=== PATIENT | female | born 1965 | race Caucasian/White ===

== ENCOUNTER 2016-12-15 21:18 | Emergency (ER) | payer OTHER ==
--- NOTE | 2016-12-15 23:08 | DIAGNOSTIC IMAGING REPORT ---
PROCEDURE: XR CHEST 2 VIEW INDICATION: SHORTNESS OF BREATH TECHNIQUE: Two views. COMPARISON: None. FINDINGS: The cardiomediastinal contour and central vasculature are within normal limits. The lungs are clear without focal consolidation, pleural effusion, or pneumothorax. The visualized osseous structures and demonstrate moderate right-sided curvature of the mid thoracic spine. IMPRESSION: 1. No acute process.
--- NOTE | 2016-12-16 00:05 | ED CLINICAL REPORT ---
Clinical Report - Physicians/Mid Levels [facility] [address] [place] [address] 12/15/2016 21:17 Patient: ARISTEO BARNARD Time Seen: 21:55. Arrived- By private vehicle. HISTORY OF PRESENT ILLNESS Chief Complaint: DYSPNEA and CHEST PAIN. This started yesterday Cant get enouth air in. Since Chey took Flonase, albuterol 10 puffs over the day. [place] better. She wonders if it could be an allergy and is still present. It has been intermittent (Lasts an hour.). The dyspnea is described as moderate. (Better with meds as above.). No cough, sputum production, calf pain or foot swelling. She has experienced sweating episodes and had chest discomfort, anxiety and palpitations. She has had dyspnea on exertion (2). (She also noted burning in chest Did not fell well, racing heart, hot all over, SOB at 730 pm. Back pain IS 8/10 - she usually has back pain but usually it is a bit lower. Chest Burning is 5/10). Similar symptoms previously: Several times. ( Negative cardiac stress test 2 years ago.). Recent medical care: Not recently seen/assessed. REVIEW OF SYSTEMS No bloody stools or stools, fever, weight loss or double vision. No ear pain, sore throat, pedal edema, abdominal pain or black stools. No diarrhea, nausea, vomiting or difficulty with urination. The patient has had fatigue, difficulty breathing, palpitations and a headache. PAST HISTORY PCP: Dr. Ceja HERMINIO PROBLEMS: Bronchitis. COPD - Chronic Obstructive Pulmonary Disease. Herniated Disk. Paroxysmal Supraventricular Tachycardia. Asthma. --21:32 Radha Mayfield R.N. ADDITIONAL SURGERIES: Cholecystectomy. Rotator Cuff Surgery. Shoulder Surgery. SOCIAL HISTORY Heavy tobacco smoker- 1-2 packs per day. ADDITIONAL NOTES The nursing notes have been reviewed. PHYSICAL EXAM Vital Signs: 12/16/2016 00:08 BP: 110/75. HR: 98. RR: 17. O2 saturation: 99%. Pain level now: 0/10. 12/15/2016 23:15 BP: 120/59. HR: 87. RR: 16. O2 saturation: 97%. 12/15/2016 21:20 BP: 160/83. HR: 116. RR: 20. O2 saturation: 100%. Temp: 98.2 F. Pain level now: 810. Appearance: Alert. Anxious. Eyes: Eyes normal inspection. No scleral icterus. ENT: Pharynx normal. Neck: Normal inspection. CVS: Tachycardia. Heart sounds normal. Respiratory: No respiratory distress. No accessory muscle use, decreased air movement, prolonged expiration, wheezes or stridor. No rales or rhonchi. Abdomen: Soft. Obese. Skin: Skin warm. Normal skin color. Extremities: Extremities exhibit normal ROM. No lower extremity edema. No lower extremity edema. LABS, X-RAYS, AND EKG EKG: Rate: 95. Normal P waves. Normal BRYAN. T wave flattening. No ST elevation or depression. The EKG appears to be a good tracing. EKG #2: Normal. Chest X-ray: No acute disease. Normal lung markings present. Normal Chest X-Ray. The X-rays were interpreted by the radiologist and contemporaneously by me and discussed with the radiologist. Laboratory Tests: CBC w Diff: (CRISTA: 12/15/2016 22:05) ( MsgRcvd 12/15/2016 23:12) Final results Test Result Flag Units (Reference) WHITE BLOOD COUNT 10.2 K/uL (4.5-11.5) RED BLOOD COUNT 4.97 M/uL (4.00-5.20) HEMOGLOBIN 14.7 gm/dL (12.0-16.0) HEMATOCRIT 43.8 % (36.0-46.0) MEAN CELL VOLUME 88 fL (80-100) MEAN CORPUSCULAR HGB 30 pg (26-34) MEAN CORPUSCULAR HGB CONC 34 g/dL (31-37) RED CELL DISTRIBUTION WIDTH 15.3 H % (11.6-14.8) PLATELET COUNT 247 K/uL (150-400) LYMPH % 20.1 L % (25-40) MONO % 3.8 % (3-14) GRANULOCYTE % 76.1 (53-90) [id number]: (CRISTA: 12/15/2016 22:05) ( [facility] 12/15/2016 22:53) Final results Test Result Flag Units (Reference) D-DIMER QUANTITATIVE < 0.27 L ug/mLFEU (0.27-0.52) The primary value of this quantitative assay relates toits negative predictive value (i.e. exclusion) of pulmonaryembolism/deep vein thrombosis/DIC.Elevated levels of d-dimer may also occur with:, age, cancer, inflammation, liver disease,post-op, infection, hematoma, coronary disease, peripheralarteriopathy, bleeding disorders and thrombolytic treatment.Results should be correlated with other clinical andradiological data.Testing Methodology: Latex Immunoassay BNP: (CRISTA: 12/15/2016 22:05) ( [facility] [place]57[facility] Final results Test Result Flag Units (Reference) B-TYPE NATRIURETIC PEPTIDE 20.9 pg/ml (5-100) CHEM 13 PANEL: (CRISTA: 12/15/2016 22:05) ( [facility] [place] 12/15/2016 22:57) Final results Test Result Flag Units (Reference) GLUCOSE 110 mg/dL (70-110) BUN 18 mg/dL (7-18) CREATININE 1.2 mg/dL (0.6-1.3) Estimated GFR 49.95 mL/min Estimated GFR- >60 mL/min Note: Persistent reduction over 3 months in eGFR<60 mL/min/1.73 m2 defines CKD. Patients with eGFR values>=60 mL/min/1.73 m2 may also have CKD if evidence ofpersistent proteinuria. Additional information may be foundat www.kidney.org. SODIUM 142 mmol/L (136-145) POTASSIUM 4.1 mmol/L (3.5-5.1) CHLORIDE 104 mmol/L (98-107) CARBON DIOXIDE 31 mmol/L (21-32) CALCIUM 8.9 mg/dL (8.5-10.1) TOTAL PROTEIN 7.7 g/dL (6.4-8.2) ALBUMIN 3.4 g/dL (3.3-5.0) BILIRUBIN, TOTAL 0.2 mg/dL (0.0-1.0) ALKALINE PHOSPHATASE 100 U/L (46-116) AST (SGOT) 20 U/L (15-37) ALT (SGPT) 28 U/L (12-78) MAGNESIUM 1.9 mg/dL (1.8-2.4) CPK 83 U/L (24-260) TROPONIN I <0.05 L ng/mL (0.00-1.5) TROPONIN REFERENCE RANGE:<0.1 NEGATIVE0.1-1.5 INDETERMINANT>1.5 POSITIVE . PROGRESS AND PROCEDURES Course of Care: 22:20 12/15/16. The patient's 8/10 pain is her usual back pain. Peak Flow is 550 - COPD exacerbation or allergy is very unlikely. History atypical for ischemia, two non-ischemic EKGs and a single negative troponin make WI unlikely. I told the patient that a second 6 hour troponin would make WI known to extremely unlikely. She is not interested in waiting for a second troponin and understands the risk. Negative Ddimer - no PE CXR history and exam - No TA rupture, pneumothorax, esophageal rupture. Also not CHF. Cause is unknown but could be GERD will do a trial of anti reflux meds and make sure pt has follow up. Her initially rapid heart rate is improved without treatment. Disposition: Discharged. Condition: stable. CLINICAL IMPRESSION Clinical picture does not suggest COPD, pneumonia, pneumothorax or pulmonary edema or embolism. Clinical picture does not suggest respiratory failure, status asthmaticus, aortic dissection, congestive heart failure or myocardial infarction. INSTRUCTIONS (NO BRONGHOSPASM, not pneunonia, not collapsed lung, not blood clot in lung. WI very unlikely. Heart artery narrowing could be present and important. IMMEDIATE RECHECK FOR WORSE PAIN OR NEW BAD SYMPTOMS IT IS OK TO TAKE AN ASPIRIN IF YOU ARE HAVING CHEST PAIN. THERE MAY BE A SMALL RISK BUT A GREAT BENEFIT. NO HEAVY EXERCISE UNTIL THIS IS SORTED OUT.). Your Current Medications: CONTINUE TAKING THE FOLLOWING MEDICATIONS: Albuterol Sulfate HFA Inhalation : 2 puffs, prn. Atenolol Oral : 25 mg 2x a day. Diazepam Oral : 5 mg 2x a day, prn. Flexeril* : 10mg 2x a day. OxyCODONE HCl Oral : 5 mg 4x a day, prn. Synthroid Oral : 75 mcg daily. Triamterene-HCTZ Oral : Tablet 37.5-25 mg, 1 tablet daily. Prescription Medications: Omeprazole 20 mg capsules: Take 1 orally once daily. Dispense fifteen (15). No refills. Follow-up: Follow up with your doctor in four days. Understanding of the discharge instructions verbalized by patient. (Electronically signed by Niels Harrison MD 12/17/2016 13:05)
--- NOTE | 2016-12-16 00:05 | ED ORDER SUMMARY ---
..... Patient: ARISTEO BARNARD OrderSheet [facility] VisitID: [id number] [place] [address] 51y, F Registration Date/Time: 12/15/2016 ORDER SHEET Weight: 108.8 kg (stated) Allergies: Augmentin, Latex, Mobic, Neurontin, Doxycycline, ASA and NSAIDS GENERAL ORDERS: EKG - ER Stat (21:41 12/15/2016 CynthiaQuivey R.N. per protocol) (21:57 Ashanti) -- (MEDS NEED TO BE RECORDED.) (21:59 12/15/2016 Yaa HUFFMAN) (22:00 DDean R.N.) Chest 2V Urgent (22:00 12/15/2016 Yaa HUFFMAN) (Ack 22:08 Ashanti) (22:35 MCampbell) Team Assembly Line Machine Operator (Continuous) (22:00 12/15/2016 Yaa HUFFMAN) (22:01 DDean R.N.) Cardiac Panel Stat (22:00 12/15/2016 Yaa HUFFMAN) (Ack 22:07 Ashanti) (22:15 DDean R.N.) BNP Urgent (22:00 12/15/2016 Yaa HUFFMAN) (Ack 22:08 Ashanti) (22:15 DDean R.N.) Oxygen (2 L/min) (NC) (22:00 12/15/2016 Yaa HUFFMAN) (22:01 DDean R.N.) Pulse oximeter (22:00 12/15/2016 Yaa HUFFMAN) (22:01 DDean R.N.) EKG - ER Stat (22:00 12/15/2016 Yaa HUFFMAN) (Ack 22:07 Ashanti) (22:08 Ashanti) D-Dimer Urgent (22:01 12/15/2016 Yaa HUFFMAN) (Ack 22:08 Ashanti) (22:15 DDean R.N.) Peak Flow (pre & post) Stat (22:45 12/15/2016 Yaa HUFFMAN) (22:57 Shanell Shields) EKG - ER Repeat Stat (23:47 12/15/2016 Yaa HUFFMAN) (0:01 Ashanti) MEDICATION ORDERS: Aspirin PO 325 mg (NOW) (22:02 12/15/2016 Yaa HUFFMAN) (Ack 22:16 DDean R.N.) (Cancelled: Other22:28 DDean R.N.) NitroGLYCERIN Paste Topical 0.5 in. (to CW) (22:03 12/15/2016 Yaa HUFFMAN) (Ack 22:16 DDean R.N.) (22:28 DDean R.N.) IV FLUIDS: IV Saline Lock (22:00 12/15/2016 Yaa HUFFMAN) (Ack 22:01 DDean R.N.) (22:16 DDean R.N.) ORDER SHEET NOTES: [Electronically signed by Larry Hernandez R.N. (00:27 12/16/2016)] [Electronically signed by Niels Harrison MD (13:05 12/17/2016)] [Electronically locked/signed by Larry Hernandez R.N. (00:27 12/16/2016)]
--- NOTE | 2016-12-16 00:05 | ED NURSING NOTES ---
Clinical Report - Nurses [facility] [address] [place] [address] 12/15/2016 21:17 Patient: ARISTEO BARNARD TRIAGE Triage time 2120. Acuity: LEVEL 3. Chief Complaint: (Pt in c/o anxiety, SOB, and pain in back on and off for several days, today onset was at 1930 "I just feel weird" Pt also states she is "very sweaty"). JAYESH COMA SCORE: [place] Coma Scale: 15- eyes open spontaneously (4); best verbal response- oriented x 4 (5); best motor response- obeys commands (6). --21:33 Radha Mayfield R.N. 21:20 12/15/16. BP: 160/83. HR: 116. RR: 20. O2 saturation: 100%. Temp: 98.2 F. Pain level now: 03/12. Additional comments: back pain . --21:33 Radha Mayfield R.N. Weight: 108.8 kg stated. Height/Length: 65 inches Per Patient. BMI: 40. --21:31 Radha Mayfield R.N. Medications Albuterol Sulfate HFA Inhalation 2 puffs, as needed. Atenolol Oral 25 mg, 2x a day. Flexeril 10mg, 2x a day. OxyCODONE HCl Oral 5 mg, 4x a day as needed. Triamterene-HCTZ Oral (Tablet 37.5-25 mg) 1 tablet, daily. --22:20 Radha Mayfield R.N. Synthroid Oral 75 mcg, daily. --22:21 Radha Mayfield R.N. Diazepam Oral 5 mg, 2x a day as needed. --22:21 Radha Mayfield R.N. Allergies Augmentin.(rash) Latex.(itching) Mobic. (liver counts went up, face went numb) Neurontin. --22:17 Radha Mayfield R.N. Doxycycline. (facial swelling) --22:17 Radha Mayfield R.N. ASA and NSAIDS. (czauses restless leg syndrome) --22:18 Radha Mayfield R.N. History Arrived by private vehicle. Historian: patient. Primary physician (Marcial- smokey pt). The patient has had a cough productive of scant amounts of sputum. Reports muscle aches. PAST MEDICAL HX: The patient is post-menopausal. ( chronic back pain). SOCIAL HX: Heavy tobacco smoker (cigarette)- 1-2 packs per day. Occasional alcohol use. No drug use. --21:33 Radha Mayfield R.N. ( pt states she thinks she might be having an allergic reaction to mold in her car). --21:40 Radha Mayfield R.N. PROBLEMS: Bronchitis. COPD - Chronic Obstructive Pulmonary Disease. Herniated Disk. Paroxysmal Supraventricular Tachycardia. Asthma. --21:32 Radha Mayfield R.N. ADDITIONAL SURGERIES: Cholecystectomy. Rotator Cuff Surgery. Shoulder Surgery. --21:32 Radha Mayfield R.N. Interventions ID band on patient. To treatment room. --21:33 Radha Mayfield R.N. PHYSICAL ASSESSMENT 21:20. Ambulatory to room. Patient gowned. GENERAL / NEURO / PSYCH: Alert. Oriented X 4. Appears anxious. RESPIRATORY: Respirations not labored. The patient can speak. CVS: Capillary refill less than 2 seconds. GI / : Abdomen soft. SKIN: Skin is warm. ( skin slightly moist). --21:35 Radha Mayfield R.N. NURSING PROGRESS NOTES 21:20. Oxygen administered. Monitoring of patient in place. Patient gowned. Head of bed elevated. Reassurance given. Patient identifiers checked. Call light placed in reach. Side rails up. Bed placed in lowest position. Patient ready for evaluation- chart flagged. --21:34 Radha Mayfield R.N. 21:40 12/15/16. cafeteria monitor placed on patient; (NSR). --21:40 Radha Mayfield R.N. EKG time: (797). EKG was ordered, performed by myla perales and shown to the ED physician. done by SARTHAK Granados --22:01 Radha Mayfield R.N. 22:06 12/15/2016 Site #1 started via IV in the left antecubital space with an 20g angiocath, with aseptic technique and good blood return; one attempt. Blood drawn: rainbow set. Labeled in the presence of the patient and sent to the lab. Saline lock flushed with 10 mL saline. --22:16 Radha Mayfield R.N. 22:28 12/15/2016 NITROGLYCERIN PASTE Topical Paste 0.5 inch. Applied to the left upper back. Allergies verified and confirmed 5 rights. --22:28 Radha Mayfield R.N. 22:30. Care transferred and report given (Larry Pham, EDRN). --22:56 Radha Mayfield R.N. Cardiac rhythm: normal sinus rhythm. The patient is calm and resting quietly. RESPIRATORY: No respiratory distress. SKIN: Skin is warm and dry. Skin color within normal limits. --23:18 Larry Hernandez R.N. 23:15 12/15/16. BP: 120/59. HR: 87. RR: 16. O2 saturation: 97% on room air. --23:18 Larry Hernandez R.N. EKG time: (2358). EKG was ordered, performed by a angella and shown to the ED physician. ( 2nd EKG (repeat)). --00:04 Silvia Panchal 00:12. The patient is calm and resting quietly. RESPIRATORY: No respiratory distress. SKIN: Skin is warm and dry. Skin color within normal limits. --00:27 Larry Hernandez R.N. DISPOSITION / DISCHARGE 00:09 12/16/2016 Site #1 removed upon discharge. Catheter intact. Bandage applied. --00:27 Larry Hernandez R.N. Departure time: 4. Condition at departure: improved and stable. No learning barriers present. Discharge instructions provided and reviewed with the patient. Reviewed medication(s) side effects, precautions, dosing and course information. Prescription(s) given to the patient. Patient verbalized understanding. Written instructions provided in Grenadian. The patient was discharged home and unaccompanied at time of discharge. She left the Emergency Department ambulatory and via private vehicle. Patient driving. FALL RISK ASSESSMENT: Fall risk assessment completed. No fall risk identified. --00:27 Larry Hernandez R.N. 00:08 12/16/16. BP: 110/75. HR: 98. RR: 17. O2 saturation: 99%. Pain level now: 0/10. --00:27 Larry Hernandez R.N. Locked/Released at 12/16/2016 0:27 by Larry Hernandez R.N.
--- NOTE | 2016-12-16 00:05 | ED ORDER SUMMARY ---
..... Patient: ARISTEO BARNARD OrderSheet [facility] VisitID: [id number] [place] [address] 51y, F Registration Date/Time: 12/15/2016 ORDER SHEET Weight: 108.8 kg (stated) Allergies: Augmentin, Latex, Mobic, Neurontin, Doxycycline, ASA and NSAIDS GENERAL ORDERS: EKG - ER Stat (21:41 12/15/2016 CynthiaQuivey R.N. per protocol) (21:57 Ashanti) -- (MEDS NEED TO BE RECORDED.) (21:59 12/15/2016 Yaa HUFFMAN) (22:00 DDean R.N.) Chest 2V Urgent (22:00 12/15/2016 Yaa HUFFMAN) (Ack 22:08 Ashanti) (22:35 MCampbell) Elementary Secretary (Continuous) (22:00 12/15/2016 Yaa HUFFMAN) (22:01 DDean R.N.) Cardiac Panel Stat (22:00 12/15/2016 Yaa HUFFMAN) (Ack 22:07 Ashanti) (22:15 DDean R.N.) BNP Urgent (22:00 12/15/2016 Yaa HUFFMAN) (Ack 22:08 Ashanti) (22:15 DDean R.N.) Oxygen (2 L/min) (NC) (22:00 12/15/2016 Yaa HUFFMAN) (22:01 DDean R.N.) Pulse oximeter (22:00 12/15/2016 Yaa HUFFMAN) (22:01 DDean R.N.) EKG - ER Stat (22:00 12/15/2016 Yaa HUFFMAN) (Ack 22:07 Ashanti) (22:08 Ashanti) D-Dimer Urgent (22:01 12/15/2016 Yaa HUFFMAN) (Ack 22:08 Ashanti) (22:15 DDean R.N.) Peak Flow (pre & post) Stat (22:45 12/15/2016 Yaa HUFFMAN) (22:57 Shanell Shields) EKG - ER Repeat Stat (23:47 12/15/2016 Yaa HUFFMAN) (0:01 Ashanti) MEDICATION ORDERS: Aspirin PO 325 mg (NOW) (22:02 12/15/2016 Yaa HUFFMAN) (Ack 22:16 DDean R.N.) (Cancelled: Other22:28 DDean R.N.) NitroGLYCERIN Paste Topical 0.5 in. (to CW) (22:03 12/15/2016 Yaa HUFFMAN) (Ack 22:16 DDean R.N.) (22:28 DDean R.N.) IV FLUIDS: IV Saline Lock (22:00 12/15/2016 Yaa HUFFMAN) (Ack 22:01 DDean R.N.) (22:16 DDean R.N.) ORDER SHEET NOTES: [Electronically signed by Larry Hernandez R.N. (00:27 12/16/2016)] [Electronically signed by Niels Harrison MD (13:05 12/17/2016)] [Electronically locked/signed by Larry Hernandez R.N. (00:27 12/16/2016)]
--- NOTE | 2016-12-16 00:05 | ED NURSING NOTES ---
Clinical Report - Nurses [facility] [address] [place] [address] 12/15/2016 21:17 Patient: ARISTEO BARNARD TRIAGE Triage time 2120. Acuity: LEVEL 3. Chief Complaint: (Pt in c/o anxiety, SOB, and pain in back on and off for several days, today onset was at 1930 "I just feel weird" Pt also states she is "very sweaty"). JAYESH COMA SCORE: [place] Coma Scale: 15- eyes open spontaneously (4); best verbal response- oriented x 4 (5); best motor response- obeys commands (6). --21:33 Radha Mayfield R.N. 21:20 12/15/16. BP: 160/83. HR: 116. RR: 20. O2 saturation: 100%. Temp: 98.2 F. Pain level now: 03/12. Additional comments: back pain . --21:33 Radha Mayfield R.N. Weight: 108.8 kg stated. Height/Length: 65 inches Per Patient. BMI: 40. --21:31 Radha Mayfield R.N. Medications Albuterol Sulfate HFA Inhalation 2 puffs, as needed. Atenolol Oral 25 mg, 2x a day. Flexeril 10mg, 2x a day. OxyCODONE HCl Oral 5 mg, 4x a day as needed. Triamterene-HCTZ Oral (Tablet 37.5-25 mg) 1 tablet, daily. --22:20 Radha Mayfield R.N. Synthroid Oral 75 mcg, daily. --22:21 Radha Mayfield R.N. Diazepam Oral 5 mg, 2x a day as needed. --22:21 Radha Mayfield R.N. Allergies Augmentin.(rash) Latex.(itching) Mobic. (liver counts went up, face went numb) Neurontin. --22:17 Radha Mayfield R.N. Doxycycline. (facial swelling) --22:17 Radha Mayfield R.N. ASA and NSAIDS. (czauses restless leg syndrome) --22:18 Radha Mayfield R.N. History Arrived by private vehicle. Historian: patient. Primary physician (Marcial- smokey pt). The patient has had a cough productive of scant amounts of sputum. Reports muscle aches. PAST MEDICAL HX: The patient is post-menopausal. ( chronic back pain). SOCIAL HX: Heavy tobacco smoker (cigarette)- 1-2 packs per day. Occasional alcohol use. No drug use. --21:33 Radha Mayfield R.N. ( pt states she thinks she might be having an allergic reaction to mold in her car). --21:40 Radha Mayfield R.N. PROBLEMS: Bronchitis. COPD - Chronic Obstructive Pulmonary Disease. Herniated Disk. Paroxysmal Supraventricular Tachycardia. Asthma. --21:32 Radha Mayfield R.N. ADDITIONAL SURGERIES: Cholecystectomy. Rotator Cuff Surgery. Shoulder Surgery. --21:32 Radha Mayfield R.N. Interventions ID band on patient. To treatment room. --21:33 Radha Mayfield R.N. PHYSICAL ASSESSMENT 21:20. Ambulatory to room. Patient gowned. GENERAL / NEURO / PSYCH: Alert. Oriented X 4. Appears anxious. RESPIRATORY: Respirations not labored. The patient can speak. CVS: Capillary refill less than 2 seconds. GI / : Abdomen soft. SKIN: Skin is warm. ( skin slightly moist). --21:35 Radha Mayfield R.N. NURSING PROGRESS NOTES 21:20. Oxygen administered. Monitoring of patient in place. Patient gowned. Head of bed elevated. Reassurance given. Patient identifiers checked. Call light placed in reach. Side rails up. Bed placed in lowest position. Patient ready for evaluation- chart flagged. --21:34 Radha Mayfield R.N. 21:40 12/15/16. nuclear engineer placed on patient; (NSR). --21:40 Radha Mayfield R.N. EKG time: (356). EKG was ordered, performed by myla perales and shown to the ED physician. done by SARTHAK Granados --22:01 Radha Mayfield R.N. 22:06 12/15/2016 Site #1 started via IV in the left antecubital space with an 20g angiocath, with aseptic technique and good blood return; one attempt. Blood drawn: rainbow set. Labeled in the presence of the patient and sent to the lab. Saline lock flushed with 10 mL saline. --22:16 Radha Mayfield R.N. 22:28 12/15/2016 NITROGLYCERIN PASTE Topical Paste 0.5 inch. Applied to the left upper back. Allergies verified and confirmed 5 rights. --22:28 Radha Mayfield R.N. 22:30. Care transferred and report given (Larry Pham, EDRN). --22:56 Radha Mayfield R.N. Cardiac rhythm: normal sinus rhythm. The patient is calm and resting quietly. RESPIRATORY: No respiratory distress. SKIN: Skin is warm and dry. Skin color within normal limits. --23:18 Larry Hernandez R.N. 23:15 12/15/16. BP: 120/59. HR: 87. RR: 16. O2 saturation: 97% on room air. --23:18 Larry Hernandez R.N. EKG time: (2358). EKG was ordered, performed by a angella and shown to the ED physician. ( 2nd EKG (repeat)). --00:04 Silvia Panchal 00:12. The patient is calm and resting quietly. RESPIRATORY: No respiratory distress. SKIN: Skin is warm and dry. Skin color within normal limits. --00:27 Larry Hernandez R.N. DISPOSITION / DISCHARGE 00:09 12/16/2016 Site #1 removed upon discharge. Catheter intact. Bandage applied. --00:27 Larry Hernandez R.N. Departure time: 4. Condition at departure: improved and stable. No learning barriers present. Discharge instructions provided and reviewed with the patient. Reviewed medication(s) side effects, precautions, dosing and course information. Prescription(s) given to the patient. Patient verbalized understanding. Written instructions provided in Lebanese. The patient was discharged home and unaccompanied at time of discharge. She left the Emergency Department ambulatory and via private vehicle. Patient driving. FALL RISK ASSESSMENT: Fall risk assessment completed. No fall risk identified. --00:27 Larry Hernandez R.N. 00:08 12/16/16. BP: 110/75. HR: 98. RR: 17. O2 saturation: 99%. Pain level now: 0/10. --00:27 Larry Hernandez R.N. Locked/Released at 12/16/2016 0:27 by Larry Hernandez R.N.
--- NOTE | 2016-12-16 00:05 | ED CLINICAL REPORT ---
Clinical Report - Physicians/Mid Levels [facility] [address] [place] [address] 12/15/2016 21:17 Patient: ARISTEO BARNARD Time Seen: 21:55. Arrived- By private vehicle. HISTORY OF PRESENT ILLNESS Chief Complaint: DYSPNEA and CHEST PAIN. This started yesterday Cant get enouth air in. Since Chey took Flonase, albuterol 10 puffs over the day. [place] better. She wonders if it could be an allergy and is still present. It has been intermittent (Lasts an hour.). The dyspnea is described as moderate. (Better with meds as above.). No cough, sputum production, calf pain or foot swelling. She has experienced sweating episodes and had chest discomfort, anxiety and palpitations. She has had dyspnea on exertion (2). (She also noted burning in chest Did not fell well, racing heart, hot all over, SOB at 730 pm. Back pain IS 8/10 - she usually has back pain but usually it is a bit lower. Chest Burning is 5/10). Similar symptoms previously: Several times. ( Negative cardiac stress test 2 years ago.). Recent medical care: Not recently seen/assessed. REVIEW OF SYSTEMS No bloody stools or stools, fever, weight loss or double vision. No ear pain, sore throat, pedal edema, abdominal pain or black stools. No diarrhea, nausea, vomiting or difficulty with urination. The patient has had fatigue, difficulty breathing, palpitations and a headache. PAST HISTORY PCP: Dr. Ceja HERMINIO PROBLEMS: Bronchitis. COPD - Chronic Obstructive Pulmonary Disease. Herniated Disk. Paroxysmal Supraventricular Tachycardia. Asthma. --21:32 Radha Mayfield R.N. ADDITIONAL SURGERIES: Cholecystectomy. Rotator Cuff Surgery. Shoulder Surgery. SOCIAL HISTORY Heavy tobacco smoker- 1-2 packs per day. ADDITIONAL NOTES The nursing notes have been reviewed. PHYSICAL EXAM Vital Signs: 12/16/2016 00:08 BP: 110/75. HR: 98. RR: 17. O2 saturation: 99%. Pain level now: 0/10. 12/15/2016 23:15 BP: 120/59. HR: 87. RR: 16. O2 saturation: 97%. 12/15/2016 21:20 BP: 160/83. HR: 116. RR: 20. O2 saturation: 100%. Temp: 98.2 F. Pain level now: 810. Appearance: Alert. Anxious. Eyes: Eyes normal inspection. No scleral icterus. ENT: Pharynx normal. Neck: Normal inspection. CVS: Tachycardia. Heart sounds normal. Respiratory: No respiratory distress. No accessory muscle use, decreased air movement, prolonged expiration, wheezes or stridor. No rales or rhonchi. Abdomen: Soft. Obese. Skin: Skin warm. Normal skin color. Extremities: Extremities exhibit normal ROM. No lower extremity edema. No lower extremity edema. LABS, X-RAYS, AND EKG EKG: Rate: 95. Normal P waves. Normal BRYAN. T wave flattening. No ST elevation or depression. The EKG appears to be a good tracing. EKG #2: Normal. Chest X-ray: No acute disease. Normal lung markings present. Normal Chest X-Ray. The X-rays were interpreted by the radiologist and contemporaneously by me and discussed with the radiologist. Laboratory Tests: CBC w Diff: (CRISTA: 12/15/2016 22:05) ( MsgRcvd 12/15/2016 23:12) Final results Test Result Flag Units (Reference) WHITE BLOOD COUNT 10.2 K/uL (4.5-11.5) RED BLOOD COUNT 4.97 M/uL (4.00-5.20) HEMOGLOBIN 14.7 gm/dL (12.0-16.0) HEMATOCRIT 43.8 % (36.0-46.0) MEAN CELL VOLUME 88 fL (80-100) MEAN CORPUSCULAR HGB 30 pg (26-34) MEAN CORPUSCULAR HGB CONC 34 g/dL (31-37) RED CELL DISTRIBUTION WIDTH 15.3 H % (11.6-14.8) PLATELET COUNT 247 K/uL (150-400) LYMPH % 20.1 L % (25-40) MONO % 3.8 % (3-14) GRANULOCYTE % 76.1 (53-90) [id number]: (CRISTA: 12/15/2016 22:05) ( [facility] 12/15/2016 22:53) Final results Test Result Flag Units (Reference) D-DIMER QUANTITATIVE < 0.27 L ug/mLFEU (0.27-0.52) The primary value of this quantitative assay relates toits negative predictive value (i.e. exclusion) of pulmonaryembolism/deep vein thrombosis/DIC.Elevated levels of d-dimer may also occur with:, age, cancer, inflammation, liver disease,post-op, infection, hematoma, coronary disease, peripheralarteriopathy, bleeding disorders and thrombolytic treatment.Results should be correlated with other clinical andradiological data.Testing Methodology: Latex Immunoassay BNP: (CRISTA: 12/15/2016 22:05) ( [facility] [place] 22:57) Final results Test Result Flag Units (Reference) B-TYPE NATRIURETIC PEPTIDE 20.9 pg/ml (5-100) CHEM 13 PANEL: (CRISTA: 12/15/2016 22:05) ( [facility] [place]/15/2016 22:57) Final results Test Result Flag Units (Reference) GLUCOSE 110 mg/dL (70-110) BUN 18 mg/dL (7-18) CREATININE 1.2 mg/dL (0.6-1.3) Estimated GFR 49.95 mL/min Estimated GFR- >60 mL/min Note: Persistent reduction over 3 months in eGFR<60 mL/min/1.73 m2 defines CKD. Patients with eGFR values>=60 mL/min/1.73 m2 may also have CKD if evidence ofpersistent proteinuria. Additional information may be foundat www.kidney.org. SODIUM 142 mmol/L (136-145) POTASSIUM 4.1 mmol/L (3.5-5.1) CHLORIDE 104 mmol/L (98-107) CARBON DIOXIDE 31 mmol/L (21-32) CALCIUM 8.9 mg/dL (8.5-10.1) TOTAL PROTEIN 7.7 g/dL (6.4-8.2) ALBUMIN 3.4 g/dL (3.3-5.0) BILIRUBIN, TOTAL 0.2 mg/dL (0.0-1.0) ALKALINE PHOSPHATASE 100 U/L (46-116) AST (SGOT) 20 U/L (15-37) ALT (SGPT) 28 U/L (12-78) MAGNESIUM 1.9 mg/dL (1.8-2.4) CPK 83 U/L (24-260) TROPONIN I <0.05 L ng/mL (0.00-1.5) TROPONIN REFERENCE RANGE:<0.1 NEGATIVE0.1-1.5 INDETERMINANT>1.5 POSITIVE . PROGRESS AND PROCEDURES Course of Care: 22:20 12/15/16. The patient's 8/10 pain is her usual back pain. Peak Flow is 550 - COPD exacerbation or allergy is very unlikely. History atypical for ischemia, two non-ischemic EKGs and a single negative troponin make IL unlikely. I told the patient that a second 6 hour troponin would make IL known to extremely unlikely. She is not interested in waiting for a second troponin and understands the risk. Negative Ddimer - no PE CXR history and exam - No TA rupture, pneumothorax, esophageal rupture. Also not CHF. Cause is unknown but could be GERD will do a trial of anti reflux meds and make sure pt has follow up. Her initially rapid heart rate is improved without treatment. Disposition: Discharged. Condition: stable. CLINICAL IMPRESSION Clinical picture does not suggest COPD, pneumonia, pneumothorax or pulmonary edema or embolism. Clinical picture does not suggest respiratory failure, status asthmaticus, aortic dissection, congestive heart failure or myocardial infarction. INSTRUCTIONS (NO BRONGHOSPASM, not pneunonia, not collapsed lung, not blood clot in lung. [place] very unlikely. Heart artery narrowing could be present and important. IMMEDIATE RECHECK FOR WORSE PAIN OR NEW BAD SYMPTOMS IT IS OK TO TAKE AN ASPIRIN IF YOU ARE HAVING CHEST PAIN. THERE MAY BE A SMALL RISK BUT A GREAT BENEFIT. NO HEAVY EXERCISE UNTIL THIS IS SORTED OUT.). Your Current Medications: CONTINUE TAKING THE FOLLOWING MEDICATIONS: Albuterol Sulfate HFA Inhalation : 2 puffs, prn. Atenolol Oral : 25 mg 2x a day. Diazepam Oral : 5 mg 2x a day, prn. Flexeril* : 10mg 2x a day. OxyCODONE HCl Oral : 5 mg 4x a day, prn. Synthroid Oral : 75 mcg daily. Triamterene-HCTZ Oral : Tablet 37.5-25 mg, 1 tablet daily. Prescription Medications: Omeprazole 20 mg capsules: Take 1 orally once daily. Dispense fifteen (15). No refills. Follow-up: Follow up with your doctor in four days. Understanding of the discharge instructions verbalized by patient. (Electronically signed by Niels Harrison MD 12/17/2016 13:05)
--- NOTE | 2016-12-17 13:05 | ED MAR SUMMARY ---
..... Medication Administration Record [facility] [address] [place] [address] Patient: ARISTEO BARNARD Visit ID: [id number] 51y, F Weight: 108.8 kg Height/Length: 65 in BMI: 40 ALLERGIES: ASA and NSAIDS, Doxycycline, Augmentin, Latex, Mobic, Neurontin Given 22:28 12/15/2016 ChaparroRadha, RBraulioN. Medication Administered: NITROGLYCERIN PASTE [TOPICAL], Dose: 0.5 in. Paste Topical. Medication Ordered: NitroGLYCERIN Paste Topical 0.5 in. (to CW).
--- NOTE | 2016-12-17 13:05 | ED MAR SUMMARY ---
..... Medication Administration Record [facility] [address] [place] [address] Patient: ARISTEO BARNARD Visit ID: [id number] 51y, F Weight: 108.8 kg Height/Length: 65 in BMI: 40 ALLERGIES: ASA and NSAIDS, Doxycycline, Augmentin, Latex, Mobic, Neurontin Given 22:28 12/15/2016 ChaparroRadha, RBraulioN. Medication Administered: NITROGLYCERIN PASTE [TOPICAL], Dose: 0.5 in. Paste Topical. Medication Ordered: NitroGLYCERIN Paste Topical 0.5 in. (to CW).
--- NOTE | 2016-12-17 13:05 | ED MED RECONCILIATION SUMMARY ---
Patient: ARISTEO BARNARD Medication Reconciliation Report [facility] VisitID: [id number] [address] [place] [address] 51y, F Registration Date/Time: 12/15/2016 Weight: 108.8 kg Height/Length: 65 in. BMI: 40.0 ALLERGIES: ASA and NSAIDS, Augmentin, Doxycycline, Latex, Mobic, Neurontin The patient's Home Medications are listed below: CONTINUE TAKING THE FOLLOWING MEDICATIONS: Albuterol Sulfate HFA Inhalation 2 puffs Atenolol Oral 25 mg, 2x a day Diazepam Oral 5 mg, 2x a day Flexeril 10mg, 2x a day OxyCODONE HCl Oral 5 mg, 4x a day Synthroid Oral 75 mcg, daily Triamterene-HCTZ Oral (37.5-25 mg) 1 tablet, daily The source(s) of the original Home Medication information: Not obtained. The following Medications were given to the patient in the Emergency Department: NITROGLYCERIN PASTE [TOPICAL] Topical 0.5 in., administered: 12/15/2016 10:28:00 PM The following Medications were prescribed to the patient: Omeprazole 20 mg capsules: Take 1 orally once daily. Dispense fifteen (15). No refills. -- Niels Harrison MD
--- NOTE | 2016-12-17 13:05 | ED DISCHARGE INSTRUCTIONS ---
Patient: ARISTEO BARNARD General Instructions [facility] VisitID: [id number] [address] [place] [address] 51y, F Registration Date/Time: 12/15/2016 INSTRUCTIONS (NO BRONGHOSPASM, not pneunonia, not collapsed lung, not blood clot in lung. [place] very unlikely. Heart artery narrowing could be present and important. IMMEDIATE RECHECK FOR WORSE PAIN OR NEW BAD SYMPTOMS IT IS OK TO TAKE AN ASPIRIN IF YOU ARE HAVING CHEST PAIN. THERE MAY BE A SMALL RISK BUT A GREAT BENEFIT. NO HEAVY EXERCISE UNTIL THIS IS SORTED OUT.). Your Current Medications: CONTINUE TAKING THE FOLLOWING MEDICATIONS: Albuterol Sulfate HFA Inhalation : 2 puffs, prn. Atenolol Oral : 25 mg 2x a day. Diazepam Oral : 5 mg 2x a day, prn. Flexeril* : 10mg 2x a day. OxyCODONE HCl Oral : 5 mg 4x a day, prn. Synthroid Oral : 75 mcg daily. Triamterene-HCTZ Oral : Tablet 37.5-25 mg, 1 tablet daily. Prescription Medications: Omeprazole 20 mg capsules: Take 1 orally once daily. Dispense fifteen (15). No refills. Follow-up: Follow up with your doctor in four days. Understanding of the discharge instructions verbalized by patient. (Electronically signed by Niels Harrison MD 12/17/2016 13:05)
--- NOTE | 2016-12-17 13:05 | ED DISCHARGE INSTRUCTIONS ---
Patient: ARISTEO BARNARD General Instructions [facility] VisitID: [id number] [address] [place] [address] 51y, F Registration Date/Time: 12/15/2016 INSTRUCTIONS (NO BRONGHOSPASM, not pneunonia, not collapsed lung, not blood clot in lung. [place] very unlikely. Heart artery narrowing could be present and important. IMMEDIATE RECHECK FOR WORSE PAIN OR NEW BAD SYMPTOMS IT IS OK TO TAKE AN ASPIRIN IF YOU ARE HAVING CHEST PAIN. THERE MAY BE A SMALL RISK BUT A GREAT BENEFIT. NO HEAVY EXERCISE UNTIL THIS IS SORTED OUT.). Your Current Medications: CONTINUE TAKING THE FOLLOWING MEDICATIONS: Albuterol Sulfate HFA Inhalation : 2 puffs, prn. Atenolol Oral : 25 mg 2x a day. Diazepam Oral : 5 mg 2x a day, prn. Flexeril* : 10mg 2x a day. OxyCODONE HCl Oral : 5 mg 4x a day, prn. Synthroid Oral : 75 mcg daily. Triamterene-HCTZ Oral : Tablet 37.5-25 mg, 1 tablet daily. Prescription Medications: Omeprazole 20 mg capsules: Take 1 orally once daily. Dispense fifteen (15). No refills. Follow-up: Follow up with your doctor in four days. Understanding of the discharge instructions verbalized by patient. (Electronically signed by Niels Harrison MD 12/17/2016 13:05)
--- NOTE | 2016-12-17 13:05 | ED MED RECONCILIATION SUMMARY ---
Patient: ARISTEO BARNARD Medication Reconciliation Report [facility] VisitID: [id number] [address] [place] [address] 51y, F Registration Date/Time: 12/15/2016 Weight: 108.8 kg Height/Length: 65 in. BMI: 40.0 ALLERGIES: ASA and NSAIDS, Augmentin, Doxycycline, Latex, Mobic, Neurontin The patient's Home Medications are listed below: CONTINUE TAKING THE FOLLOWING MEDICATIONS: Albuterol Sulfate HFA Inhalation 2 puffs Atenolol Oral 25 mg, 2x a day Diazepam Oral 5 mg, 2x a day Flexeril 10mg, 2x a day OxyCODONE HCl Oral 5 mg, 4x a day Synthroid Oral 75 mcg, daily Triamterene-HCTZ Oral (37.5-25 mg) 1 tablet, daily The source(s) of the original Home Medication information: Not obtained. The following Medications were given to the patient in the Emergency Department: NITROGLYCERIN PASTE [TOPICAL] Topical 0.5 in., administered: 12/15/2016 10:28:00 PM The following Medications were prescribed to the patient: Omeprazole 20 mg capsules: Take 1 orally once daily. Dispense fifteen (15). No refills. -- Niels Harrison MD
== END 2016-12-16 00:14 | disposition home or self-care (01) ==
LOC: ED SRH 21:18
DX: R06.00 Dyspnea, unspecified (principal); R07.9 Chest pain, unspecified; K21.9 Gastro-esophageal reflux disease without esophagitis; J44.9 Chronic obstructive pulmonary disease, unspecified; F17.210 Nicotine dependence, cigarettes, uncomplicated
CPT/HCPCS: 90100; 90616; 91320; 91556; 92610; 92720; 95059